=== PATIENT | female | born 1970 | race Caucasian/White ===

== ENCOUNTER → 2020-08-20 | Outpatient (CLI) | payer OTHER ==
[2020-08-21 09:00] LABS: Candida species (DNA Probe) Negative (NEGATIVE); G. vaginalis (DNA Probe) Negative (NEGATIVE); T. vaginalis (DNA Probe) Negative (NEGATIVE)
== END | disposition home or self-care (01) ==
LOC: LAB SHORT 14:05 → LAB 14:05
PROVIDERS: Nurse Practitioner Family
DX: L29.3 Anogenital pruritus, unspecified (principal)
CPT/HCPCS: 87480; 87510; 87660

== ENCOUNTER → 2020-12-08 | Outpatient (CLI) | payer OTHER | END | disposition home or self-care (01) | LOC: LAB 13:11 → LAB SHORT 13:11 | DX: R05.1 Acute cough (principal) | CPT/HCPCS: 87081 ==

== ENCOUNTER → 2021-05-09 | Outpatient (CLI) | payer OTHER | END | disposition home or self-care (01) | LOC: LAB SHORT 14:00 → LAB 14:00 | DX: R30.9 Painful micturition, unspecified (principal) | CPT/HCPCS: 87086 ==

== ENCOUNTER → 2022-01-25 | Outpatient (CLI) | payer OTHER | END | disposition home or self-care (01) | LOC: LAB 08:24 → LAB SHORT 08:24 | DX: A31.0 Pulmonary mycobacterial infection (principal) | CPT/HCPCS: 87070; 87205 ==